=== PATIENT | male | born 1970 ===

== ENCOUNTER 2020-03-29 13:09 | Outpatient (CLI) | payer OTHER ==
--- NOTE | 2020-03-29 17:00 | Consultation ---
DATE OF CONSULTATION: 03/29/2020 CONSULTING PHYSICIAN: Osmar Quesada MD. CHIEF COMPLAINT: Referral for screening colonoscopy. PAST MEDICAL HISTORY: None. PAST SURGICAL HISTORY: Knee surgery. MEDICATIONS: None. FAMILY HISTORY: Grandmother had some kind of colon possibly polyps. SOCIAL HISTORY: The patient is a social drinker, otherwise no IV drug abuse. No tobacco abuse. ALLERGIES: No known drug allergies. REVIEW OF SYSTEMS: A 10-point review of systems was performed and pertinent positives in HPI. PHYSICAL EXAMINATION: HEENT: Normocephalic and atraumatic. Sclerae anicteric. NECK: Supple. No evidence of obvious lymphadenopathy. CARDIOVASCULAR: Regular rhythm. Plus S1, S2. LUNGS: Clear to auscultation bilaterally. ABDOMEN: Positive bowel sounds. Soft and nontender. No rebound. No guarding. No peritoneal sign. EXTREMITIES: No cyanosis. No clubbing. No edema. ASSESSMENT AND PLAN: This is a 50-year-old male who was referred for screening colonoscopy. The patient was given instruction for colonoscopy. Risks and benefits of the procedure were explained to him. We plan to schedule him when the authorization is obtained. Osmar Quesada M.D. DR: Russ JOB#: [id number] CC:
[2020-03-30] MEDS ORDERED: NO MEDICATION (15:43)
== END 2020-03-29 15:09 | disposition home or self-care (01) ==
LOC: PAN 13:09
DX: Z00.00 Encounter for general adult medical examination without abnormal findings (principal)
CPT/HCPCS: G0463